=== PATIENT | male | born 1945 | race Two or more races ===

== ENCOUNTER 2023-03-03 21:58 | Emergency (ER) | payer OTHER ==
[~2023-03-03] VITALS: Ht 162.6 cm; Wt 63.5 kg
[2023-03-03] MEDS ORDERED: SODIUM CHLORIDE 0.9% 1,000 ML IV ONE (22:30)
[2023-03-03] MEDS ORDERED: ONDANSETRON HCL 4 MG/2 ML VIAL IV ONE (22:30)
[2023-03-03] MEDS ORDERED: MORPHINE SULFATE 4 MG/ML SYR/VIAL IV ONE (22:30)
[2023-03-03] MEDS ORDERED: LORazepam 2MG/ML-1ML VIAL IV ONE (22:30)
[2023-03-03 22:59] LABS: Basophils # (auto) 0.1 10 ^3/uL (0-0.2); Basophils % (auto) 0.7 % (0.0-2.0); Eosinophils # (auto) 0 10 ^3/uL (0-0.8); Eosinophils % (auto) 0.4 % (0.0-7.0); Hematocrit 44.1 % (41.0-53.0); Hemoglobin 15.2 g/dL (13.5-17.5); Lymphocytes # (auto) 1.3 10 ^3/uL (0.4-5.4); Lymphocytes % (auto) 15.9 % (10.0-50.0); Mean Corpuscular Hemoglobin 30.9 pg (28.0-32.0); Mean Corpuscular Hgb Conc. 34.5 g/dL (32.0-36.0); Mean Corpuscular Volume 89.6 fL (80.0-100.0); Monocytes # (auto) 0.5 10 ^3/uL (0-1.3); Monocytes % (auto) 6.9 % (0.0-12.0); Neutrophils # (auto) 6.1 10 ^3/uL (1.6-8.6); Neutrophils % (auto) 76.1 % (37.0-80.0); Nucleated Red Blood Cells % 0.1 %; Red Blood Cells 4.92 10^6/uL (4.5-5.90); Red Cell Distribution Width 13.4 % (11.8-14.3)
[2023-03-03 23:14] LABS: Alanine Aminotransferase 46 U/L (7-40); Albumin 4.8 g/dL (3.2-4.8); Alkaline Phosphatase 95 U/L (46-116); Anion Gap 12 (5-15); Aspartate Aminotransferase 42 U/L (13-40); BUN/Creatinine Ratio 6.6 (10.0-20.0); Blood Urea Nitrogen 6 mg/dL (9-23); Calcium 9.4 mg/dL (8.7-10.4); Carbon Dioxide 18 mmol/L (20-30); Chloride 106 mmol/L (98-107); Glucose 143 mg/dL (74-106); Magnesium 1.9 mg/dL (1.6-2.6); Potassium 3.5 mmol/L (3.5-5.1); Sodium 136 mmol/L (136-145)
[2023-03-03 23:15] LABS: Bilirubin, Total 0.9 mg/dL (0.2-1.0)
[2023-03-04 04:32] VITALS: TEMP 98
[2023-03-04] MEDS ORDERED: HYDROmorphone HCL 2 MG/ML VL/or syr IM ONE (05:15)
[2023-03-04 07:04] VITALS: BP 118/76; PULSE 78; RESP 17; O2SAT 96
== END 2023-03-04 07:08 | disposition home or self-care (01) ==
LOC: EDBD 21:58 → ER 22:02
DX: F11.23 Opioid dependence with withdrawal (principal); R74.01 Elevation of levels of liver transaminase levels; R73.9 Hyperglycemia, unspecified; G89.29 Other chronic pain; M54.9 Dorsalgia, unspecified
CPT/HCPCS: 36415; 80053; 83735; 84484; 85025; 96361; 96372; 96374; 96375; 99285; J1170; J2060; J2270; J2405; J7030